=== PATIENT | male | born 1985 | race Caucasian/White ===

== ENCOUNTER 2024-09-30 10:11 | Emergency (ER) | payer MEDICAID, SELFPAY ==
[2024-09-30 10:54] VITALS: BP 106/71; PULSE 105; RESP 19; TEMP 36.6; O2SAT 99; BMI 21.1
--- NOTE | 2024-09-30 11:01 | PD.EDRME ---
Rapid Medical Screening Exam RME Arrival date/time: 09/30/24 10:11 Chief Complaint: Extremity Problem,Nontraumatic Time Seen by Provider: 09/30/24 10:14 Vital signs: Vital Signs Temperature 97.9 F 09/30/24 10:54 Pulse Rate 105 H 09/30/24 10:54 Respiratory Rate 19 09/30/24 10:54 Blood Pressure 106/71 09/30/24 10:54 Pulse Oximetry (%) 99 09/30/24 10:54 Oxygen Delivery Method Room Air 09/30/24 10:54 RME Narrative: RLE swelling x4-5 days
--- NOTE | 2024-09-30 11:02 | XR_ITS ---
Examination: Duplex scan of the lower extremity, unilateral right complete Date and time of exam: September 30, 2024 1157 hours INDICATIONS: Onset right lower leg swelling and pain beginning 4 days ago Technique: Duplex scan of the extremity veins using B-mode/grayscale imaging and Doppler spectral analysis and color flow Attention is directed to internal echogenicity, compression and augmentation involving these veins, color flow assessment, spectral analysis Findings: Major deep venous structures in the extremity demonstrate normal course and caliber. There is no evidence of deep vein thrombosis. Normal color flow and spectral analysis Impression: Negative for DVT..
--- NOTE | 2024-09-30 12:37 | PD.EDEXREM ---
ED Extremity Problem RME/HPI General Chief complaint: Extremity Problem,Nontraumatic Stated complaint: RIGHT LEG SWELLING X 4-5 DAYS Time Seen by Provider: 09/30/24 10:14 Arrival date/time: 09/30/24 10:11 RME / HPI RME / HPI Narrative: 39-year-old male patient, homeless, came in for evaluation regarding right lower leg swelling. According to the patient has been having swelling to the right lower leg, for the last 4 days, severity mild. Associated with mild tenderness. Denies any redness. Denies any trauma. Denies any fever. Denies any other complaints. No medications taken prior to arrival. Related Data Previous Rx's ?Medication ?Instructions ?Recorded ibuprofen 600 mg tablet 600 mg PO Q6H #30 tabs 08/20/24 Allergies Allergy/AdvReac Type Severity Reaction Status Date / Time codeine Allergy Severe Swelling Verified 09/30/24 10:13 of Lip/Tongue/Throat Review of Systems Review of Systems Narrative Review of Systems: Review of system reviewed and within normal limits except mentioned in HPI ED Exam Narrative Physical exam: VITAL SIGNS: Reviewed. GENERAL APPEARANCE: Alert and interactive, follows commands, no acute distress, HEAD AND FACE: Non-traumatic. ENT: PERRL, pink conjunctivitis, eyelid no trauma, Mucous membrane moist. NECK: Supple, nontender, no nuchal rigidity. CHEST: No tenderness, no crepitus, no paradoxical movement, no retractions. LUNGS: Clear, well ventilated, symmetric, no rales, no wheezing, no ronchi, no stridor, good breath sounds bilaterally. HEART: Regular rate, regular rhythm, no murmur, no gallops. ABDOMEN: Soft, positive bowel sounds, nondistended, no guarding, nontender, no rebound, no masses, RECTAL: Deferred. GENITAL: Deferred. NEUROLOGICAL: Gross motor function intact sensory function intact, Appropriate for age. MUSCULOSKELETAL: low back nontender, full range of motion. EXTREMITIES: +1 right lower leg swelling, no redness mild tenderness, full range of motion. SKIN: Color pink, dry, no rash, no lacerations, no abrasions, no contusions. LYMPHATICS: Deferred. Course Quality Measures none Orders Category Date Time Status US venous duplex LE RT Stat Exams 09/30/24 11:02 Completed Ibuprofen Tab [Motrin Tab] Med 09/30/24 12:35 Discontinued 800 mg PO X1 ONE Vital Signs Vital signs: Vital Signs Temperature 97.9 F 09/30/24 10:54 Pulse Rate 105 H 09/30/24 10:54 Respiratory Rate 19 09/30/24 10:54 Blood Pressure 106/71 09/30/24 10:54 Pulse Oximetry (%) 99 09/30/24 10:54 Oxygen Delivery Method Room Air 09/30/24 10:54 Extremity Problem MDM Narrative MDM Narrative:: 39-year-old male patient, homeless, came in for evaluation regarding right lower leg swelling. According to the patient has been having swelling to the right lower leg, for the last 4 days, severity mild. Associated with mild tenderness. Denies any redness. Denies any trauma. Denies any fever. Denies any other complaints. No medications taken prior to arrival. Ultrasound of the right lower extremities negative for DVT Patient data External records reviewed:: None Clinical information provided by:: none Social determinants that could affect healthcare access:: housing Patient has the following chronic illnesses:: None How is presenting disease/condition affected by chronic disease/condition?: no chronic disease Evaluation data The following diagnostics were reviewed and interpreted by me:: radiology exam(s) Lab and/or radiology exams considered but not ordered:: None Interpretation Summary: Ultrasound of the right lower extremities negative for DVT Medications / Prescriptions Medications or Prescriptions considered but not ordered:: None Medication administrations:: Medication Administration History Discontinued Medications Ibuprofen (Ibuprofen Tab 400 Mg Tablet) 800 mg PO X1 ONE Stop: 09/30/24 12:36 Motrin Consultations Consultation(s) initiated? (list below): No Diagnosis Extremity Problem Differential Diagnosis: cellulitis, lower extremity edema and deep vein thrombosis of lower extremity Most likely diagnosis given after review of the tests above:: Right lower legs edema Admission Indicated Admission indicated?: not indicated Explain why admission is indicated or not indicated:: Stable Admission Request Was there a request for admission?: No Disposition Plan Disposition Plan: Discharge Discharge Attestation Discharge Attestation: The patient was given an opportunity to ask questions and understood the discharge instructions. Discharge instructions specifically effects, indications for sooner follow up or return to the emergency department, and the expected course of current diagnosis. Patient condition: Stable Discharge Plan Plan Patient Disposition: HOME (Self Care) Disposition Comment: stable Prescriptions/Referrals Prescriptions/Med Rec: No Action ibuprofen 600 mg tablet 600 mg PO Q6H Qty: 30 0RF Referrals: No Primary/Family,Physician [Primary Care Provider] - In 1 week Problem List Clinical Impression: Lower extremity edema Patient/Caregiver Discharge Instructions Education Materials: ED Leg Swelling in a Single Leg Additional Instructions: Thank you for the opportunity for serving you today. You are stable for discharged . You are advised to: Follow-up with your PCP in 1 to 2 days Return to ED for worsening of symptoms Print Language: Polish Stand Alone Forms: Edel Award Info., Patient Portal Info Letter PA/HOSPITAL DIRECTOR Supervising Physician PA/HOSPITAL DIRECTOR Supervising Physician: MD Stacy
[2024-09-30] MEDS: IBUPROFEN TAB 400 MG TABLET 800 MG PO (13:02)
== END 2024-09-30 13:22 | disposition home or self-care (01) ==
PROVIDERS: Emergency Provider Emergency Medicine
DX: R60.0 Localized edema (principal)
CPT/HCPCS: 93971; 99284; A9270

== ENCOUNTER 2025-05-28 00:36 | Emergency (ER) | payer MEDICAID, SELFPAY ==
[2025-05-28 00:39] VITALS: BP 100/67; PULSE 91; RESP 16; TEMP 36.8; O2SAT 97
--- NOTE | 2025-05-28 00:40 | XR_ITS ---
Examination: Left ankle 2 views TECHNIQUE: AP lateral left ankle 2 views Date and time: May 28, 2025, 0103 hours. INDICATIONS: Patient fell out of bed today with injury to the ankle, ankle pain FINDINGS: Prominent lateral malleolar soft tissue swelling Multiple old appearing small bone densities at the fibular tip No acute dislocation No acute fracture IMPRESSION: Prominent lateral malleolar soft tissue swelling
--- NOTE | 2025-05-28 00:49 | PD.EDADULT ---
ED General RME/HPI General Chief complaint: Ankle/Foot Injury Stated complaint: LEFT ANKLE INJURY Time Seen by Provider: 05/28/25 00:46 Arrival date/time: 05/28/25 00:36 RME / HPI RME / HPI narrative: 40-year-old male comes in from prison due to ankle injury. Patient states he was going to the bathroom and when he took a step to go to use the restroom he fell and twisted his ankle in a inverted fashion. Patient states that otherwise he has 10 out of 10 pain at this time, but is able to move the ankle and has pain with active movement. Patient is able to bear weight on the ankle. Denies LOC, Hitting his head, chest pain, abdominal pain, nausea, vomit, or changes in BM. No other complaints at this time. Admit smoking, drugs, denies any drinking. Related Data Previous Rx's ?Medication ?Instructions ?Recorded ibuprofen 600 mg tablet 600 mg PO Q6H #30 tabs 08/20/24 Allergies Allergy/AdvReac Type Severity Reaction Status Date / Time codeine Allergy Severe Swelling Verified 05/28/25 00:40 of Lip/Tongue/Throat Review of Systems Review of Systems Systems Reviewed: All systems reviewed, normal except as documented Past Medical History Past Medical History NEUROLOGIC: Negative Neurological Disorders CARDIAC: Negative Cardiac Disorders or Congestive Heart Failure RESPIRATORY: Negative Chronic Obstructive Pulmonary Disease (COPD) GENITOURINARY: Negative Renal Disease ENDOCRINE: Negative Diabetes Mellitus Type 1 or Diabetes Mellitus Type 2 PSYCHO/SOCIAL: Positive Depression and Anxiety Social History SMOKING STATUS: Heavy (> 1 pack/day) SUBSTANCE USE: methamphetamine ED Exam Narrative Physical exam: Gen: A&O X 3, NAD HEENT: NCAT, EOMI, Pupils reactive MAXI, not icteric. External ears normal. No rhinorrhea. Moist mucous membranes. Neck: Supple, full range of motion, no observable masses, No meningeal sign. Lungs: No Respiratory distress, clear bilateral. CV: RRR, no murmurs. Abdomen: Soft, nondistended, No rebound tenderness. MSK: L ankle swollen and tender with passive and active motion, no redness, peripheral pulses presents, lumbar with no edema. Skin: No rashes, petechiae, lesions. Neuro: No focal neurological deficits appreciated, sensory and motor intact. Psych: Cooperative, appropriate mood and effect. Course Quality Measures none Orders Category Date Time Status Splint / Immobilizer STAT Care 05/28/25 01:23 Active XR ankle LT 2V Stat Exams 05/28/25 00:40 Taken Ketorolac Inj [Toradol Inj] Med 05/28/25 00:58 Discontinued 30 mg IM X1 ONE Ketorolac Inj [Toradol Inj] Med 05/28/25 00:58 Discontinued 30 mg IVP X1 ONE Vital Signs Vital signs: Vital Signs Temperature 98.2 F 05/28/25 00:39 Pulse Rate 91 05/28/25 00:39 Respiratory Rate 16 05/28/25 00:39 Blood Pressure 100/67 05/28/25 00:39 Pulse Oximetry (%) 97 05/28/25 00:39 Oxygen Delivery Method Room Air 05/28/25 00:39 Discharge Plan Plan Patient Disposition: Fdc/Court/Law Prescriptions/Referrals Prescriptions/Med Rec: No Action ibuprofen 600 mg tablet 600 mg PO Q6H Qty: 30 0RF Referrals: No Primary/Family,Physician [Primary Care Provider] - In 1 week Problem List Clinical Impression: Ankle sprain and strain Patient/Caregiver Discharge Instructions Other Activity Instructions:: Follow-up primary care physician within 5 days Can take Tylenol every 6 hours as needed for the next 3 days for pain Recommend being nonweightbearing for the next 3 to 5 days. Recommend placing cold compresses for 10 to 15 minutes at least 4 times a day to decrease inflammation. Recommend placing an air splint versus cam walker. Come back to the ED if pain worsens, you are unable to ambulate after 5 to 7 days, or if the swelling worsens. Education Materials: ED Ankle Sprain (Adult) Print Language: Thai MDM Narrative MDM hospital course: Patient was seen and evaluated by myself upon arrival. Diagnostic imaging was ordered. Gave ketorolac 30 mg IM. 1:51 Ordered left leg deluxe cast boot and air splint with eren wrap as well. Imaging reviewed by ED physician Dr. Fishman does not show any acute gross fractures at this time. At this time patient is medically cleared to go back to prison with follow-up with primary care physician. Case disclosed with Attending Dr. Sravanthi Triplett PGY2 Disclaimer: Even though this this note was dictated by speech recognition and even though it was carefully revised there may still be minor errors in bulk pigment reducer due to voice recognition software. Medication Administration(s) Medication Administration History Discontinued Medications Ketorolac Tromethamine (Ketorolac Inj 30 Mg/Ml Vial) 30 mg IVP X1 ONE Stop: 05/28/25 00:59 Last Admin: 05/28/25 01:00 Dose: Not Given Documented By: CARLTON Non-Admin Reason: Cancelled by Provider Ketorolac Tromethamine (Ketorolac Inj 30 Mg/Ml Vial) 30 mg IM X1 ONE Stop: 05/28/25 00:59 Last Admin: 05/28/25 01:09 Dose: 30 mg Documented By: CARLTON
[2025-05-28] MEDS: KETOROLAC INJ 30 MG/ML VIAL IM (01:09)
== END 2025-05-28 02:06 ==
DX: S93.402A Sprain of unspecified ligament of left ankle, initial encounter (principal); S96.912A Strain of unspecified muscle and tendon at ankle and foot level, left foot, initial encounter; F17.210 Nicotine dependence, cigarettes, uncomplicated; Z88.5 Allergy status to narcotic agent; X50.1XXA Overexertion from prolonged static or awkward postures, initial encounter; W18.39XA Other fall on same level, initial encounter; Y92.142 Bathroom in prison as the place of occurrence of the external cause
CPT/HCPCS: 29515; 73600; 96372; 99284; J1885

== ENCOUNTER 2025-06-30 18:20 | Emergency (ER) | payer MEDICAID, SELFPAY ==
[2025-06-30 18:27] VITALS: PULSE 130; RESP 16; O2SAT 98
[2025-06-30 18:31] VITALS: BMI 25.1
--- NOTE | 2025-06-30 18:32 | EDNOTE_ITS ---
ED Overdose RME/HPI General Chief Complaint: Overdose Stated Complaint: OVERDOSE Time Seen by Provider: 06/30/25 18:25 Arrival date/time: 06/30/25 18:20 RME / HPI RME / HPI Narrative: DR. LUCIANO MAIN ED EVALUATION: Patient arrives by EMS after reportedly using fentanyl recreationally and was found to be obtunded. Patient responded to Narcan 4 mg and vomited prior to arrival. Denies any antecedent illness or suicidal ideation. No abdominal pain or diarrhea. PMH is unremarkable. PSH is also unremarkable. Social history includes smoking, nondrinker, and reports long-term fentanyl use. Context: Accidental Overdose: wanted to get high Associated symptoms: nausea/vomiting Treatments Prior to Arrival: narcan Related Data Previous Rx's ?Medication ?Instructions ?Recorded ibuprofen 600 mg tablet 600 mg PO Q6H #30 tabs 08/20 Allergies Allergy/AdvReac Type Severity Reaction Status Date / Time codeine Allergy Severe Swelling Verified 05/28/25 00:40 of Lip/Tongue/Throat Review of Systems Review of Systems Systems Reviewed: All systems reviewed, normal except as documented Past Medical History Past Medical History PSYCHO/SOCIAL: Positive Recreational Drug Use, Depression and Anxiety Social History SUBSTANCE USE: opiates and methamphetamine ED Exam Narrative Physical exam: GEN. APPEARANCE: The patient is alert awake oriented X-3, disheveled, unkempt, actively vomiting at time of exam, somulant although easily arousable without signs of respiratory distress. Patient has good eye contact. Patient is cooperative. VITALS: All vitals were reviewed and the pulse ox is 99% on room air which is normal according to my interpretation. HEENT: Normocephalic, atraumatic. Pupils are equal and reactive, Pupils 3-4 mm. Oral mucosa is moist. Patent Nares NECK: Supple, nontender, no thyromegaly, no meningismus, no JVD, no step offs CHEST: Symmetrical, atraumatic, and with equal expansion , Nontender on palpation no deformity and no crepitus. CARDIOVASCULAR: Heart regular rhythm no murmur or gallop rub or extra beats. LUNGS: Clear to auscultation bilaterally with symmetrical chest rise. No laboring tachypnea or wheezing. No intercostal subcostal retraction. No rales and no rhonchi. ABDOMEN: Soft, flat, nontender to palpation, no guarding or rebound tenderness. There are no abnormal masses palpated. Active and normal bowel sounds. EXTREMITIES: Nontender. No edema. No cyanosis. Patient is able to move all 4 extremities well, with full ROM and good CSM. SKIN: Warm and dry, no jaundice or rashes noted. MUSCULOSKELETAL: No lubar or midline bony tenderness. There is no CVA tenderness. No paraspinal muscle spasm or tenderness. NEURO: Patient is VALLE x 4, Cranial nerves II through XII grossly intact. There is no focal neurologic deficits noted. GCS is 15, PNS and [employer] appear grossly intact. PSYCHIATRIC: Patient is in normal mood and affect, cooperative, no SI or HI or hallucinations. Course Quality Measures none Orders Category Date Time Status Alcohol, Blood Medical Stat Lab 06/30/25 19:24 Completed CBC [CBC] Stat Lab 06/30/25 19:24 Completed CMP [Comprehensive Metabolic Panel] Stat Lab 06/30/25 19:24 Completed Drug Screen,Urine Stat Lab 06/30/25 19:04 Ordered Urinalysis, C/S if Indicated Stat Lab 06/30/25 19:03 Ordered Folic Acid Inj Med 06/30/25 19:01 Discontinued 1 mg IVP X1 ONE Magnesium Sulfate 2 GM Ivpb [Magnesium Sulfate Ivpb] Med 06/30/25 19:01 Discontinued 2 gm in 50 ml IV X1 Potassium Chloride [K-Dur] Med 06/30/25 21:59 Discontinued 40 meq PO X1 ONE Sodium Chloride 0.9% 1000 ml [Ns] 1,000 ml Med 06/30/25 19:04 Discontinued IV 999 mls/hr Sodium Chloride 0.9% 1000 ml [Ns] 1,000 ml Med 06/30/25 20:38 Discontinued IV 999 mls/hr Thiamine Inj [Vitamin B-1 Inj] Med 06/30/25 19:01 Discontinued 100 mg IVP X1 ONE Vital Signs Vital signs: Vital Signs Temperature 98.7 F 06/30/25 18:34 Pulse Rate 68 06/30/25 18:34 Respiratory Rate 17 06/30/25 18:34 Blood Pressure 133/82 H 06/30/25 18:34 Pulse Oximetry (%) 99 06/30/25 18:34 Oxygen Delivery Method Room Air 06/30/25 18:34 Overdose MDM Narrative MDM Narrative:: Scribe Attestation: I, Lazara Buckner, am scribing for and in the presence of Dr. Luciano. Provider Notation: Although this document has been carefully reviewed, there may still be some phonetic and other typographical errors. These errors are purely grammatical due to imperfections in the software program and should not be construed in any way to compromise the substance of the patient's medical care during this visit. Patient arrives by EMS after reportedly using fentanyl recreationally and was found to be obtunded. Patient responded to Narcan 4 mg and vomited prior to arrival. Please see PE findings. Laboratory markers notable for evidence of dehydration and hypokalemia, for which patient received potassium supplementation via PO route. Also administered common nutrient for malnutrition. Further inquiry shows patient has been chronically depressed, homeless with recurrent suicidal ideation and noted plan. Patient fearful he may act out on plan and notes previous suicide attempt. Patient is medically cleared for psychiatric evaluation. Clinical impression includes: Dehydration, Hypokalemia, Chronic depression, and Suicidal ideation. Disposition per recommendations of mental health services. Patient data External records reviewed:: [facility] previous records (Reviewed prior ED records from 05/28/25. Patient was seen for Ankle sprain and strain.) and EMS form Clinical information provided by:: patient and EMS Social determinants that could affect healthcare access:: substance use Patient has the following chronic illnesses:: Anxiety, Depression, Recreational Druge Use How is presenting disease/condition affected by chronic disease/condition?: exacerbated by Evaluation data The following diagnostics were reviewed and interpreted by me:: lab results Lab and/or radiology exams considered but not ordered:: None Interpretation Summary: See MDM above Medications / Prescriptions Medications or Prescriptions considered but not ordered:: None Medication administrations:: Medication Administration History Discontinued Medications Folic Acid (Folic Acid Inj 1 Mg/0.2 Ml) 1 mg IVP X1 ONE Stop: 06/30/25 19:02 Last Admin: 06/30/25 19:34 Dose: 1 mg Documented By: VINOD Sodium Chloride (Ns) 1,000 mls @ 999 mls/hr IV .Q1H1M ONE Stop: 06/30/25 20:04 Last Infusion: 06/30/25 20:40 Dose: Infused Documented By: Admin: 06/30/25 19:35 Dose: 999 mls/hr Documented By: VINOD Magnesium Sulfate (Magnesium Sulfate Ivpb) 2 gm in 50 mls @ 25 mls/hr IV X1 ONE Stop: 06/30/25 21:00 Last Infusion: 06/30/25 21:40 Dose: Infused Documented By: Admin: 06/30/25 19:35 Dose: 25 mls/hr Documented By: VINOD Sodium Chloride (Ns) 1,000 mls @ 999 mls/hr IV .Q1H1M ONE Stop: 06/30/25 21:38 Last Admin: 06/30/25 21:57 Dose: 999 mls/hr Documented By: VINOD Potassium Chloride (Potassium Chloride 20 Meq Tabcr) 40 meq PO X1 ONE Stop: 06/30/25 22:00 Thiamine HCl (Thiamine Inj 100 Mg/Ml Vial 2 Ml) 100 mg IVP X1 ONE Stop: 06/30/25 19:02 Last Admin: 06/30/25 19:35 Dose: 100 mg Documented By: VINOD See above if any Consultations Consultation(s) initiated? (list below): No Diagnosis Overdose Differential Diagnosis: cocaine intoxication, suicide attempt by multiple drug overdose, poisoning by opiate or related narcotic, drug overdose, acetaminophen overdose and accidental drug ingestion Most likely diagnosis given after review of the tests above:: Dehydration, Hypokalemia, Chronic depression, and Suicidal ideation. Admission Indicated Admission indicated?: not indicated Explain why admission is indicated or not indicated:: Pending psychiatric evaluation Admission Request Was there a request for admission?: No Disposition Plan Disposition Plan: other (specify) (Patient signed out to oncoming ED physician at 6 AM.) Discharge Plan Prescriptions/Referrals Prescriptions/Med Rec: No Action ibuprofen 600 mg tablet 600 mg PO Q6H Qty: 30 0RF Referrals: No Primary/Family,Physician [Primary Care Provider] - In 1 week Problem List Clinical Impression: Dehydration, Hypokalemia, Chronic depression, Suicidal ideation Patient/Caregiver Discharge Instructions Print Language: Romanian
[2025-06-30 18:34] VITALS: BP 133/82; PULSE 68; RESP 17; TEMP 37.1; O2SAT 99
[2025-06-30 19:33] LABS: Basophils # (Auto) 0.0 Thou/mm3 (0.0-0.2); Basophils % (Auto) 1 % (0-2.5); Eosinophils # (Auto) 0.1 Thou/mm3 (0.0-0.5); Eosinophils % (Auto) 3 % (0-10); Hematocrit 36.9 % (41.0-53.0); Hemoglobin 12.3 g/dL (13.5-16.0); Immature Granulocytes Auto 0.02 Thou/mm3 (0.00-0.00); Lymphocytes # (Auto) 1.2 Thou/mm3 (1.0-4.8); Lymphocytes % (Auto) 25 % (10-50); Mean Corpuscular HGB Conc 33.3 g/dl (31.0-37.0); Mean Corpuscular Hemoglobin 29.1 pg (25.0-35.0); Mean Corpuscular Volume 87 fL (80-100); Monocytes # (Auto) 0.3 Thou/mm3 (0.0-0.8); Monocytes % (Auto) 7 % (0-12); Neutrophils # (Auto) 3.1 Thou/mm3 (1.8-7.7); Neutrophils % (Auto) 64 % (37-80); Nucleated Red Blood Cell # 0.00 Thou/mm3 (0.00-0.00); Nucleated Red Blood Cell % 0 /100 WBC (0); Platelet Count 212 Thou/mm3 (140-440); RDW Standard Deviation 43.3 fL (35.1-43.9); Red Blood Count 4.23 Miln/mm3 (4.50-5.90); White Blood Count 4.8 Thou/mm3 (3.8-10.6)
[2025-06-30] MEDS: FOLIC ACID INJ 1 MG/0.2 ML IVP (19:34)
[2025-06-30] MEDS: SODIUM CHLORIDE 0.9% 1000 ML 1,000 ML 999 ML IV ×2 (19:35→21:57)
[2025-06-30] MEDS: THIAMINE INJ 100 MG/ML VIAL 2 ML IVP (19:35)
[2025-06-30] MEDS: Magnesium Sulfate 2 GM Ivpb 2 GM/50 ML BAG IV (19:35)
[2025-06-30 20:01] LABS: Alanine Aminotransferase 13 U/L (10-49); Albumin, Serum 3.9 gm/dL (3.5-5.0); Albumin/Globulin Ratio 2.4 (1.2-2.2); Alcohol, Blood Medical < 3.0 mg/dL (0-10.0); Alkaline Phosphatase 67 U/L (46-116); Anion Gap 9 (7-16); Aspartate Amino Transferase 22 U/L (0-34); BUN/Creatinine Ratio 13 Ratio (12-20); Bilirubin,Total 0.5 mg/dL (0.3-1.2); Blood Urea Nitrogen 13 mg/dL (9-23); Calcium 8.8 mg/dL (8.3-10.6); Calcium (Corrected) 8.9 mg/dL (8.5-10.1); Carbon Dioxide 28.3 mMol/L (20.0-31.0); Chloride 109 mMol/L (98-107); Creatinine (Component) 1.0 mg/dL (0.6-1.3); Estimated Creatinine Clearance 100.2 mL/min (>60); Globulin 1.6 gm/dL (2.3-3.5); Glucose 97 mg/dL (74-106); Osmolality,Calculated 290 (275-295); Potassium 3.1 mMol/L (3.4-5.1); Sodium 146 mMol/L (136-145); Total Protein 5.5 gm/dL (5.7-8.2); eGFR > 60 See Note
[2025-06-30 22:30] VITALS: BP 133/72; PULSE 69; RESP 15; TEMP 36.9; O2SAT 100
[2025-06-30 23:00] VITALS: BP 99/61; PULSE 65; RESP 10; O2SAT 100
[2025-07-01] VITALS (11 sets, daily range): BP systolic 89–113; BP diastolic 53–77; PULSE 61–88; RESP 11–18; TEMP 36.7–36.9; O2SAT 97–100
--- NOTE | 2025-07-01 06:27 | EDNOTE_ITS ---
Emergency Room Addendum Addendum Narrative: 0600: Care assumed from Dr. Fishman, the previous shift emergency physician. Past medical, surgical, social and family history reviewed. Vitals and home medications reviewed. I will assume the care of the patient at this time, pending psychiatric evaluation. Patient was medically cleared for psychiatric evaluation by previous provider. Please refer to the emergency department record for history and examination from initial visit.? The patient was placed in ED observation care at 07/01/2025 at 0600 hours. The patient was placed in ED observation care pending mental health evaluation. The patients past medical history, social history, and family history were reviewed. The plan of care will include serial examinations. While in ED observation the patient will have access to water, food, and personal hygiene. If the patient takes home medication(s), they will be continued in ED observation. 0630: Patient was seen by last night's provider and was medically cleared. However, patient has been hypotensive all night and last blood pressure was 84/54 with a heart rate of 60. So I will give 2 liters of normal saline and patient already had 2 liters of normal saline but has not urinated yet. Physical exam by me shows patient under no acute distress at this time, just hypotensive. 1102: Mental health cleared the patient. Safety plan in place and patient will be discharged home. Referral to [facility] was submitted by out outreach and education social worker team and patient was given community, homelessness, and drug support resources. 1221: Patient discharged. ED observation care ended at 07/01/2025 at 1221 hours. Patient remains clinically stable throughout the emergency department visit. Re- assessment at the time of disposition demonstrates that the patient is in no acute distress. We reviewed all the results, analysis, and treatment plans. Patient is amenable to discharge. Strict return precautions were outlined. Patient was discharged in stable condition. Diagnoses: -Dehydration -Hypokalemia -Suicidal ideation -Illicit drug use
[2025-07-01] MEDS: SODIUM CHLORIDE 0.9% 1000 ML 1,000 ML 999 ML IV ×2 (07:49→10:00)
[2025-07-01 09:50] LABS: Collection Type, Urine Clean Catch
[2025-07-01 09:56] LABS: Bilirubin,Urine Negative (Negative); Blood,Urine Negative (Negative); Clarity,Urine Hazy (Clear/Hazy); Color,Urine Lt-Yellow (Lt Yel-Yel); Culture Indicated,Urine Yes; Glucose, Urine Negative (Negative); Ketones,Urine Negative (Negative); Leukocyte Esterase,Urine Positive (Negative); Nitrite,Urine Negative (Negative); PH,Urine 6.0 (5.0-7.0); Protein,Urine Negative (Neg - Trace); RBC,Urine 7 /hpf (0-3); Specific Gravity,Urine 1.016 (1.001-1.035); Squamous Epithelial Cell,Urine 2 /hpf (0-5); Urobilinogen,Urine Negative mg/dL (0.0-1.0); WBC,Urine 32 /hpf (0-5)
[2025-07-01 10:40] LABS: Amphetamine/Methamp Scrn,U Positive (Negative); Barbiturate Screen,Urine Negative (Negative); Benzodiazepines Screen,Urine Negative (Negative); Benzoylecgonine Screen, Ur Negative (Negative); Fentanyl Screen,Urine Positive (Negative); Opiate Screen,Urine Negative (Negative); THC Screen,Urine Negative (Negative)
--- NOTE | 2025-07-01 11:04 | PC.CC ---
AMFT Latonia made [id number] contact with patient to complete assessment. AMFT introduced self, role, and reason for assessment. AMFT disclosed limits of confidentiality. .Patient appeared alert and oriented to self, place, and situation. Patient made appropriate eye contact with this commercial insurance underwriter. Patients mood appeared to be euthymic and remained engaged in assessment, patient had good insight and judgment. Patient reports yesterday he tried Fentanyl for the first time and had two puffs and woke up facing PPD and was told he was narcan and was on his was to [facility] ER. Patient disclosed he has had suicidal ideation for about 9 months ago with thoughts of SI coming and going. Patient reports he does not have self-injurious behaviors. At the time of encounter patient is not expressing suicidal and homicidal ideations. Pt endorsed visual and audio hallucinations - daily due to diagnosis of Depression and Schizophrenia. Pt denied command hallucinations Patient?s toxicology report was positive for Meth and Fentanyl. Patient had a [place] screening completed at the time of arrival at the hospital, the outcome was High Risk. Pt denied current thoughts of SI/HI and does not wish to . [facility]?not meet criteria for 5585-Hold. AMFT communicated outcome with Dr. Plummer, Charge nurse Jennifer, and bedside nurse Sourav. Referral to [facility] was submitted for Pt and Pt was given community, homelessness, and drug support resources.
== END 2025-07-01 12:47 | disposition home or self-care (01) ==
PROVIDERS: Emergency Provider Emergency Medicine
DX: T40.411A Poisoning by fentanyl or fentanyl analogs, accidental (unintentional), initial encounter (principal); R40.0 Somnolence; R11.10 Vomiting, unspecified; F32.A Depression, unspecified; E87.6 Hypokalemia; E86.0 Dehydration; R45.851 Suicidal ideations; Z59.00 Homelessness unspecified; Z91.51 Personal history of suicidal behavior
CPT/HCPCS: 36415; 80053; 80307; 80320; 81001; 85025; 87086; 96127; 99283; J3411; J3475; J3490; J7030; A9270; G0480